=== PATIENT | male | born 1940 | race Caucasian/White ===

== ENCOUNTER 2023-08-01 14:14 | Inpatient (IN) | payer OTHER ==
[~2023-08-01] VITALS: Ht 177.8 cm; Wt 104.6 kg
[2023-08-01 15:26] LABS: Basophils # (auto) 0 10 ^3/uL (0-0.2); Basophils % (auto) 0.2 % (0.0-2.0); Eosinophils # (auto) 0 10 ^3/uL (0-0.8); Lymphocytes % (auto) 7.2 % (10.0-50.0); Mean Corpuscular Volume 93.4 fL (80.0-100.0); Monocytes # (auto) 1.5 10 ^3/uL (0-1.3)
[2023-08-01 15:28] LABS: Hematocrit 38.7 % (41.0-53.0); Hemoglobin 12.9 g/dL (13.5-17.5); Mean Corpuscular Hemoglobin 31.1 pg (28.0-32.0); Mean Corpuscular Hgb Conc. 33.3 g/dL (32.0-36.0); Monocytes % (auto) 10.6 % (0.0-12.0); Neutrophils # (auto) 11.9 10 ^3/uL (1.6-8.6); Red Blood Cells 4.15 10^6/uL (4.5-5.90); Red Cell Distribution Width 12.8 % (11.8-14.3); White Blood Cell 14.5 10^3/uL (4.4-10.8)
[2023-08-01] MEDS ORDERED: ALBUTEROL SULF 2.5 MG/0.5ML(0.5%) NEB SOLN NEB ONE ×3 (16:00→23:00)
[2023-08-01] MEDS ORDERED: levoFLOXacin 500MG 100 ML IV ONE ×2 (16:00→18:43)
[2023-08-01] MEDS ORDERED: FUROSEMIDE 20 MG/2 ML VIAL IV ONE (16:00)
[2023-08-01] MEDS ORDERED: methylPREDNISolone SOD SUCC 125 MG/2 ML VL IV ONE (16:00)
[2023-08-01] MEDS ORDERED: IPRATROPIUM BROM 0.5 MG/2.5ML INH SOL NEB ONE ×2 (16:00→23:00)
[2023-08-01] MEDS ORDERED: IPRATROPIUM BROM 0.5 MG/2.5ML INH SOL ONE ×2 (16:43→23:38)
[2023-08-01] MEDS ORDERED: ALBUTEROL SULF 2.5 MG/0.5ML(0.5%) NEB SOLN ONE ×3 (16:43→23:38)
[2023-08-01 17:15] LABS: Alanine Aminotransferase 57 U/L (7-40); Albumin 3.5 g/dL (3.2-4.8); Alkaline Phosphatase 653 U/L (46-116); Anion Gap 3 (5-15); Aspartate Aminotransferase 126 U/L (13-40); BUN/Creatinine Ratio 19.6 (10.0-20.0); Blood Urea Nitrogen 18 mg/dL (9-23); Carbon Dioxide 36 mmol/L (20-30); Chloride 87 mmol/L (98-107); Glucose 114 mg/dL (74-106); Magnesium 1.5 mg/dL (1.6-2.6); Sodium 126 mmol/L (136-145)
[2023-08-01 17:16] LABS: Bilirubin, Total 1.4 mg/dL (0.2-1.0); Total Protein 6.6 g/dL (5.7-8.2)
[2023-08-01 17:18] LABS: Potassium 5.6 mmol/L (3.5-5.1)
[2023-08-01] MEDS ORDERED: methylPREDNISolone SOD SUCC 125 MG/2 ML VL ONE (18:44)
[2023-08-01 18:54] VITALS: PULSE 95; RESP 22; O2SAT 95
[2023-08-01 19:40] VITALS: PULSE 98; RESP 20; O2SAT 96
[2023-08-01] MEDS ORDERED: MAGNESIUM SULFATE 1GM/100ML 100 ML IV ONE ×2 (20:15→21:10)
[2023-08-01] MEDS ORDERED: DEXTROSE (50%) 50ML SYRG IV ONE (20:45)
[2023-08-01] MEDS ORDERED: SODIUM ZIRCONIUM CYCL 10 GM PAK PO ONE (20:45)
[2023-08-01] MEDS ORDERED: SODIUM CHLORIDE 0.9% 500 ML IV ONE (20:45)
[2023-08-01] MEDS ORDERED: InsuLIN REG 1unit/0.01ml Soln (100units/ml) IV ONE (20:45)
[2023-08-01 21:39] LABS: Chloride 87 mmol/L (98-107); Potassium 5.2 mmol/L (3.5-5.1); Sodium 126 mmol/L (136-145)
[2023-08-01 21:40] LABS: Anion Gap 4 (5-15); Calcium 9.2 mg/dL (8.5-10.1); Carbon Dioxide 35 mmol/L (20-30)
[2023-08-01 21:45] LABS: BUN/Creatinine Ratio 17.6 (10.0-20.0); Blood Urea Nitrogen 16 mg/dL (9-23); Glucose 101 mg/dL (74-106)
[2023-08-01 21:50] LABS: COVID19 ANTIGEN SOFIA FIA NEGATIVE (NEGATIVE)
[2023-08-01 21:51] LABS: Rapid Influenza A Negative (Negative); Rapid Influenza B Negative (Negative)
[2023-08-01] MEDS ORDERED: ACETAMINOPHEN 325 MG TAB PO PRN (22:30)
[2023-08-01] MEDS: SODIUM CHLORIDE 0.9% 1,000 ML IV SCH (22:30)
[2023-08-01] MEDS ORDERED: PROMETHAZINE HCL 25 MG/ML 1ML IV PRN (22:30)
[2023-08-01] MEDS ORDERED: CALCIUM GLUC 1,000mg/50ml-NS 50 ML IV ONE ×2 (22:45→23:00)
[2023-08-01] MEDS ORDERED: DEXTROSE 50% SYRINGE 50 ML IV ONE (22:56)
[2023-08-01] MEDS ORDERED: InsuLIN REG 1unit/0.01ml Soln (100units/ml) ONE (22:57)
[2023-08-01] MEDS ORDERED: SODIUM ZIRCONIUM CYCL 10 GM PAK ONE (22:58)
[2023-08-02] VITALS (9 sets, daily range): BP systolic 123–159; BP diastolic 71–88; PULSE 80–105; RESP 16–20; TEMP 97.8–98.8; O2SAT 92–97
[2023-08-02] MEDS: SODIUM CHLORIDE 0.9% 1,000 ML IV SCH ×2 (00:02→18:15)
[2023-08-02 02:50] LABS: Urine Bacteria NONE SEEN /hpf (None Seen); Urine Blood Negative /uL (Negative); Urine Clarity HAZY (Clear); Urine Color Yellow (Yellow); Urine Hyaline Cast FEW /lpf (0 - 2); Urine Mucus FEW (None Seen); Urine Protein, UAD 1+ (Negative); Urine Specific Gravity 1.017 (1.001-1.035); Urine WBC 4 /hpf (0 - 3)
[2023-08-02] MEDS ORDERED: ATOR10TA52 PO (06:18)
[2023-08-02] MEDS ORDERED: PREG-109 PO (06:18)
[2023-08-02] MEDS ORDERED: LOSA100T58 PO (06:18)
[2023-08-02] MEDS ORDERED: SERT-206 (06:18)
[2023-08-02] MEDS ORDERED: CLON-853 PO (06:18)
[2023-08-02] MEDS ORDERED: HYDR25TA5 PO (06:18)
[2023-08-02] MEDS ORDERED: HYDR-4611 (07:10)
[2023-08-02 08:56] LABS: Basophils # (auto) 0 10 ^3/uL (0-0.2); Eosinophils # (auto) 0 10 ^3/uL (0-0.8); Hematocrit 36.1 % (41.0-53.0); Hemoglobin 11.9 g/dL (13.5-17.5); Lymphocytes # (auto) 0.5 10 ^3/uL (0.4-5.4); Lymphocytes % (auto) 4.7 % (10.0-50.0); Mean Corpuscular Hemoglobin 30.8 pg (28.0-32.0); Mean Corpuscular Hgb Conc. 32.9 g/dL (32.0-36.0); Mean Corpuscular Volume 93.6 fL (80.0-100.0); Monocytes # (auto) 0.6 10 ^3/uL (0-1.3); Monocytes % (auto) 5.2 % (0.0-12.0); Neutrophils # (auto) 9.6 10 ^3/uL (1.6-8.6); Neutrophils % (auto) 90.1 % (37.0-80.0); Nucleated Red Blood Cells % 0.1 %; Red Blood Cells 3.86 10^6/uL (4.5-5.90); Red Cell Distribution Width 13.3 % (11.8-14.3); White Blood Cell 10.7 10^3/uL (4.4-10.8)
[2023-08-02 09:05] LABS: Chloride 90 mmol/L (98-107); Potassium 4.5 mmol/L (3.5-5.1); Sodium 127 mmol/L (136-145)
[2023-08-02 09:06] LABS: Anion Gap 5 (5-15); Calcium 9.2 mg/dL (8.5-10.1); Carbon Dioxide 32 mmol/L (20-30)
[2023-08-02 09:11] LABS: BUN/Creatinine Ratio 22.1 (10.0-20.0); Blood Urea Nitrogen 15 mg/dL (9-23); Glucose 137 mg/dL (74-106)
[2023-08-02] MEDS ORDERED: SODIUM CHLORIDE 0.9% 500 ML IV ONE ×2 (09:45→11:30)
[2023-08-02] MEDS ORDERED: methylPREDNISolone SOD SUCC 40 MG/ML VL ONE ×2 (09:47→21:24)
[2023-08-02] MEDS ORDERED: levoFLOXacin 500MG 100 ML IV SCH (10:00)
[2023-08-02] MEDS: methylPREDNISolone SOD SUCC 40 MG/ML VL IV SCH ×2 (10:00→21:28)
[2023-08-02] MEDS: levoFLOXacin 500MG 100 ML IV SCH (18:15)
[2023-08-02 18:45] LABS: Chloride 91 mmol/L (98-107); Potassium 4.3 mmol/L (3.5-5.1); Sodium 127 mmol/L (136-145)
[2023-08-02 18:46] LABS: Anion Gap 3 (5-15); Calcium 8.5 mg/dL (8.7-10.4); Carbon Dioxide 33 mmol/L (20-30)
[2023-08-02 18:51] LABS: BUN/Creatinine Ratio 25.4 (10.0-20.0); Blood Urea Nitrogen 17 mg/dL (9-23); Glucose 136 mg/dL (74-106)
[2023-08-02] MEDS ORDERED: SERTRALINE HCL 50 MG TAB PO ONE (21:00)
[2023-08-02] MEDS ORDERED: ALBUTEROL SULF 2.5 MG/0.5ML(0.5%) NEB SOLN ONE (21:16)
[2023-08-02] MEDS ORDERED: SERTRALINE HCL 50 MG TAB ONE (21:23)
[2023-08-02] MEDS ORDERED: ACETAMINOPHEN 325 MG TAB PO ONE (21:24)
[2023-08-02] MEDS: ALBUTEROL SULF 2.5 MG/0.5ML(0.5%) NEB SOLN NEB SCH (21:27)
[2023-08-03] VITALS (18 sets, daily range): BP systolic 112–148; BP diastolic 61–76; PULSE 61–116; RESP 16–24; TEMP 97.7–98.6; O2SAT 92–100
[2023-08-03 04:13] LABS: Chloride 91 mmol/L (98-107); Potassium 4.5 mmol/L (3.5-5.1); Sodium 125 mmol/L (136-145)
[2023-08-03 04:14] LABS: Anion Gap 2 (5-15); Calcium 8.6 mg/dL (8.7-10.4); Carbon Dioxide 32 mmol/L (20-30)
[2023-08-03 04:19] LABS: Blood Urea Nitrogen 19 mg/dL (9-23); Glucose 124 mg/dL (74-106)
[2023-08-03 04:58] LABS: Basophils # (auto) 0 10 ^3/uL (0-0.2); Basophils % (auto) 0.1 % (0.0-2.0); Eosinophils # (auto) 0 10 ^3/uL (0-0.8); Hematocrit 34.6 % (41.0-53.0); Hemoglobin 11.4 g/dL (13.5-17.5); Lymphocytes # (auto) 0.5 10 ^3/uL (0.4-5.4); Lymphocytes % (auto) 3.9 % (10.0-50.0); Mean Corpuscular Hemoglobin 30.9 pg (28.0-32.0); Mean Corpuscular Hgb Conc. 32.8 g/dL (32.0-36.0); Monocytes # (auto) 0.7 10 ^3/uL (0-1.3); Monocytes % (auto) 5.1 % (0.0-12.0); Neutrophils # (auto) 12.4 10 ^3/uL (1.6-8.6); Neutrophils % (auto) 90.9 % (37.0-80.0); Nucleated Red Blood Cells % 0.1 %; Red Blood Cells 3.68 10^6/uL (4.5-5.90); Red Cell Distribution Width 13.1 % (11.8-14.3); White Blood Cell 13.6 10^3/uL (4.4-10.8)
[2023-08-03] MEDS ORDERED: ALBUTEROL SULF 2.5 MG/0.5ML(0.5%) NEB SOLN ONE ×5 (05:52→21:42)
[2023-08-03] MEDS: ALBUTEROL SULF 2.5 MG/0.5ML(0.5%) NEB SOLN NEB SCH ×5 (06:52→22:14)
[2023-08-03] MEDS ORDERED: SERTRALINE HCL 50 MG TAB ONE (09:40)
[2023-08-03] MEDS ORDERED: methylPREDNISolone SOD SUCC 40 MG/ML VL ONE ×2 (09:40→20:50)
[2023-08-03] MEDS: SERTRALINE HCL 50 MG TAB PO SCH (09:43)
[2023-08-03] MEDS: SODIUM CHLORIDE 0.9% 1,000 ML IV SCH (09:43)
[2023-08-03] MEDS: methylPREDNISolone SOD SUCC 40 MG/ML VL IV SCH ×2 (09:43→20:54)
[2023-08-03] MEDS ORDERED: clonazePAM 0.5 MG TAB ONE (12:01)
[2023-08-03] MEDS: clonazePAM 0.5 MG TAB PO PRN (12:07)
[2023-08-03] MEDS ORDERED: HYDROcodone-ACET 10/325MG TAB ONE ×2 (12:44→20:48)
[2023-08-03] MEDS: HYDROcodone-ACET 10/325MG TAB PO PRN ×2 (12:44→20:54)
[2023-08-03] MEDS ORDERED: MORPHINE SULFATE INJ 2 MG/ml SYRG ONE (17:07)
[2023-08-03] MEDS ORDERED: levoFLOXacin 500MG 100 ML IV ONE (17:08)
[2023-08-03] MEDS: levoFLOXacin 500MG 100 ML IV SCH (17:33)
[2023-08-04] VITALS (18 sets, daily range): BP systolic 126–152; BP diastolic 61–92; PULSE 54–87; RESP 16–21; TEMP 97.8–98.5; O2SAT 90–100
[2023-08-04 06:27] LABS: Basophils # (auto) 0 10 ^3/uL (0-0.2); Basophils % (auto) 0.1 % (0.0-2.0); Eosinophils # (auto) 0 10 ^3/uL (0-0.8); Hematocrit 34.6 % (41.0-53.0); Hemoglobin 11.1 g/dL (13.5-17.5); Lymphocytes # (auto) 0.8 10 ^3/uL (0.4-5.4); Lymphocytes % (auto) 6.5 % (10.0-50.0); Mean Corpuscular Hemoglobin 30.3 pg (28.0-32.0); Mean Corpuscular Hgb Conc. 32.1 g/dL (32.0-36.0); Mean Corpuscular Volume 94.3 fL (80.0-100.0); Monocytes # (auto) 0.8 10 ^3/uL (0-1.3); Monocytes % (auto) 6.3 % (0.0-12.0); Neutrophils # (auto) 11.1 10 ^3/uL (1.6-8.6); Neutrophils % (auto) 87.1 % (37.0-80.0); Nucleated Red Blood Cells % 0.1 %; Red Blood Cells 3.67 10^6/uL (4.5-5.90); Red Cell Distribution Width 13.1 % (11.8-14.3); White Blood Cell 12.7 10^3/uL (4.4-10.8)
[2023-08-04 06:42] LABS: Anion Gap 2 (5-15); Calcium 8.8 mg/dL (8.7-10.4); Carbon Dioxide 32 mmol/L (20-30); Chloride 92 mmol/L (98-107); Potassium 5.5 mmol/L (3.5-5.1); Sodium 126 mmol/L (136-145)
[2023-08-04 06:48] LABS: BUN/Creatinine Ratio 24.2 (10.0-20.0); Blood Urea Nitrogen 16 mg/dL (9-23); Glucose 108 mg/dL (74-106)
[2023-08-04] MEDS: ALBUTEROL SULF 2.5 MG/0.5ML(0.5%) NEB SOLN NEB SCH ×5 (07:26→22:45)
[2023-08-04 07:57] LABS: Triglycerides 115 mg/dL (< 150)
[2023-08-04 07:58] LABS: LDL Cholesterol 93 mg/dL (< 100)
[2023-08-04 07:59] LABS: Cholesterol 140 mg/dL (< 200); HDL Cholesterol 30 mg/dL (40-59)
[2023-08-04] MEDS: HYDROcodone-ACET 10/325MG TAB PO PRN ×2 (08:49→17:48)
[2023-08-04] MEDS: SERTRALINE HCL 50 MG TAB PO SCH (10:11)
[2023-08-04] MEDS: methylPREDNISolone SOD SUCC 40 MG/ML VL IV SCH ×2 (10:11→21:33)
[2023-08-04] MEDS ORDERED: SODIUM ZIRCONIUM CYCL 10 GM PAK PO ONE (10:30)
[2023-08-04] MEDS ORDERED: DEXTROSE (50%) 50ML SYRG IV ONE ×2 (10:30→14:30)
[2023-08-04] MEDS ORDERED: InsuLIN REG 1unit/0.01ml Soln (100units/ml) IV ONE (10:30)
[2023-08-04] MEDS ORDERED: InsuLIN REG 1unit/0.01ml Soln (100units/ml) SC ONE (13:15)
[2023-08-04] MEDS ORDERED: SODIUM CHLORIDE 1 GM TAB PO ONE (15:00)
[2023-08-04 15:09] LABS: Creatinine, Urine 57.35 mg/dL (30.0-125.0)
[2023-08-04] MEDS: levoFLOXacin 500MG 100 ML IV SCH (17:46)
[2023-08-05] VITALS (8 sets, daily range): BP systolic 131–161; BP diastolic 68–83; PULSE 72–89; RESP 18–21; TEMP 97.9–98; O2SAT 91–100
[2023-08-05] MEDS: HYDROcodone-ACET 10/325MG TAB PO PRN ×3 (00:26→15:56)
[2023-08-05 06:32] LABS: Anion Gap 3 (5-15); Carbon Dioxide 33 mmol/L (20-30); Chloride 92 mmol/L (98-107); Potassium 4.6 mmol/L (3.5-5.1); Sodium 128 mmol/L (136-145)
[2023-08-05 06:33] LABS: Calcium 9.1 mg/dL (8.5-10.1)
[2023-08-05 06:34] LABS: Basophils # (auto) 0 10 ^3/uL (0-0.2); Eosinophils # (auto) 0 10 ^3/uL (0-0.8); Hematocrit 35.7 % (41.0-53.0); Hemoglobin 11.8 g/dL (13.5-17.5); Lymphocytes # (auto) 0.9 10 ^3/uL (0.4-5.4); Lymphocytes % (auto) 6.1 % (10.0-50.0); Mean Corpuscular Hemoglobin 30.5 pg (28.0-32.0); Mean Corpuscular Volume 92.4 fL (80.0-100.0); Monocytes # (auto) 0.9 10 ^3/uL (0-1.3); Monocytes % (auto) 6.1 % (0.0-12.0); Neutrophils # (auto) 13.2 10 ^3/uL (1.6-8.6); Neutrophils % (auto) 87.8 % (37.0-80.0); Red Blood Cells 3.87 10^6/uL (4.5-5.90); Red Cell Distribution Width 12.9 % (11.8-14.3); White Blood Cell 15.1 10^3/uL (4.4-10.8)
[2023-08-05 06:38] LABS: BUN/Creatinine Ratio 26.3 (10.0-20.0); Blood Urea Nitrogen 15 mg/dL (9-23); Glucose 109 mg/dL (74-106)
[2023-08-05] MEDS: ALBUTEROL SULF 2.5 MG/0.5ML(0.5%) NEB SOLN NEB SCH ×3 (06:57→14:15)
[2023-08-05] MEDS: methylPREDNISolone SOD SUCC 40 MG/ML VL IV SCH (09:04)
[2023-08-05] MEDS ORDERED: buPROPion HCL 75 MG TAB PO SCH (10:00)
[2023-08-05] MEDS ORDERED: SODIUM CHLORIDE 1 GM TAB PO SCH (10:00)
[2023-08-05] MEDS: clonazePAM 0.5 MG TAB PO PRN (12:44)
[2023-08-05] MEDS ORDERED: SODC1T PO (14:16)
[2023-08-05] MEDS ORDERED: PRED20TA2 PO (14:16)
[2023-08-05] MEDS ORDERED: BUPR75TA96 PO (14:16)
[2023-08-05] MEDS ORDERED: [UNRECOGNIZED DRUG - CODE] PO (14:16)
[2023-08-05] MEDS ORDERED: LEVO500T91 PO (14:17)
[2023-08-05] MEDS ORDERED: ALBUAER3 IN (14:17)
[2023-08-05] MEDS ORDERED: Ensure HIGH Protein Chocolate 8oz Bottle PO SCH (18:00)
[2023-08-05] MEDS ORDERED: DEMECLOCYCLINE HCL 150 MG TAB PO SCH (22:00)
== END 2023-08-05 17:00 | disposition home health service (06) | DRG 643 ==
LOC: EDUNIT# 14:14 → EDBD 14:14 → ER 14:14 → TELE 22:18 → TELE-CENTR 22:18
PROVIDERS: ADMIT Internal Medicine; ATTEND Internal Medicine
DX: E22.2 Syndrome of inappropriate secretion of antidiuretic hormone (principal); J96.21 Acute and chronic respiratory failure with hypoxia; J44.1 Chronic obstructive pulmonary disease with (acute) exacerbation; F33.1 Major depressive disorder, recurrent, moderate; I10 Essential (primary) hypertension; G89.4 Chronic pain syndrome; E78.5 Hyperlipidemia, unspecified; R79.89 Other specified abnormal findings of blood chemistry; E83.42 Hypomagnesemia; Z20.822 Contact with and (suspected) exposure to COVID-19; E87.5 Hyperkalemia; F41.9 Anxiety disorder, unspecified; Z80.1 Family history of malignant neoplasm of trachea, bronchus and lung; Z88.0 Allergy status to penicillin; Z88.1 Allergy status to other antibiotic agents; Z99.81 Dependence on supplemental oxygen; Z79.899 Other long term (current) drug therapy
CPT/HCPCS: 36415; 71045; 80048; 80053; 80061; 81001; 82570; 82962; 83605; 83735; 83880; 83930; 83935; 84300; 84443; 84484; 85025; 87040; 87077; 87186; 87426; 87804; 94640; 97110; 97116; 97163; 97530; 99291; G0378; J1815; J1956

== ENCOUNTER 2023-10-09 15:40 | Emergency (ER) | payer OTHER ==
[~2023-10-09] VITALS: Ht 172.7 cm; Wt 104.5 kg
[~2023-10-09 15:40] MED LIST: ALBUAER3 IN; ATOR10TA52 PO; BUPR75TA96 PO; CLON-853 PO; HYDR-4611; LEVO500T91 PO; PRED20TA2 PO; PREG-109 PO; SODC1T PO; [UNRECOGNIZED DRUG - CODE] PO
[2023-10-09 16:10] VITALS: PULSE 150; RESP 17; O2SAT 96
[2023-10-09] MEDS: dilTIAZem 25 MG/5 ML VIAL IV ONE (16:28)
[2023-10-09] MEDS ORDERED: dilTIAZem 125mg/125ml BAG KIT 125 ML IV ONE (16:45)
[2023-10-09 17:00] LABS: Basophils # (auto) 0 10 ^3/uL (0-0.2); Basophils % (auto) 0.1 % (0.0-2.0); Eosinophils # (auto) 0 10 ^3/uL (0-0.8); Hematocrit 34.2 % (41.0-53.0); Hemoglobin 11.1 g/dL (13.5-17.5); Lymphocytes # (auto) 0.9 10 ^3/uL (0.4-5.4); Lymphocytes % (auto) 6.7 % (10.0-50.0); Mean Corpuscular Hemoglobin 30.1 pg (28.0-32.0); Mean Corpuscular Hgb Conc. 32.6 g/dL (32.0-36.0); Mean Corpuscular Volume 92.4 fL (80.0-100.0); Monocytes # (auto) 0.9 10 ^3/uL (0-1.3); Monocytes % (auto) 6.6 % (0.0-12.0); Neutrophils % (auto) 86.6 % (37.0-80.0); Red Cell Distribution Width 15.1 % (11.8-14.3); White Blood Cell 13.9 10^3/uL (4.4-10.8)
[2023-10-09 17:17] LABS: Alanine Aminotransferase 30 U/L (7-40); Albumin 2.8 g/dL (3.2-4.8); Alkaline Phosphatase 385 U/L (46-116); Aspartate Aminotransferase 70 U/L (13-40); BUN/Creatinine Ratio 19.4 (10.0-20.0); Bilirubin, Total 4.5 mg/dL (0.2-1.0); Blood Urea Nitrogen 6 mg/dL (9-23); Calcium 8.3 mg/dL (8.7-10.4); Chloride 75 mmol/L (98-107); Glucose 111 mg/dL (74-106); Magnesium 1.4 mg/dL (1.6-2.6); Potassium 3.5 mmol/L (3.5-5.1); Total Protein 5.8 g/dL (5.7-8.2)
[2023-10-09] MEDS: SODIUM CHLORIDE 0.9% 500 ML IV ONE (17:17)
[2023-10-09 17:53] LABS: Anion Gap 3.99999 (5-15); Carbon Dioxide > 40 mmol/L (20-30); Sodium 119 mmol/L (136-145)
[2023-10-09] MEDS ORDERED: METOPROLOL TARTRATE 1MG/1ML-5ML VIAL IV PRN (18:00)
[2023-10-09] MEDS ORDERED: IPRATROPIUM BROM 0.5 MG/2.5ML INH SOL NEB PRN (18:15)
[2023-10-09 18:21] LABS: Base Excess 16.2 mmol/L (-2.0-2.0)
[2023-10-09] MEDS: MAGNESIUM SULFATE 1GM/100ML 100 ML IV SCH (18:38)
[2023-10-09] MEDS: METOPROLOL TARTRATE 25 MG TAB PO SCH (18:39)
[2023-10-09] MEDS: METOPROLOL TARTRATE 1MG/1ML-5ML VIAL IV ONE (18:39)
[2023-10-09] MEDS: SODIUM CHLORIDE 1 GM TAB PO SCH (18:58)
[2023-10-09] MEDS: DEMECLOCYCLINE HCL 150 MG TAB PO ONE (19:06)
[2023-10-09 19:23] VITALS: BP 111/66; PULSE 130; RESP 18; TEMP 97.6; O2SAT 96
[2023-10-09 20:07] VITALS: PULSE 115; RESP 14; O2SAT 95
[2023-10-09] MEDS ORDERED: METOPROLOL TARTRATE 25 MG TAB PO SCH (22:00)
[2023-10-10] MEDS: HYDROcodone-ACET 5/325MG TAB PO PRN (06:29)
[2023-10-10 06:49] VITALS: BP 137/66; PULSE 107; RESP 18; TEMP 97.6; O2SAT 99
== END 2023-10-10 07:08 | disposition short-term general hospital (02) ==
LOC: ER 15:40 → EDBD 15:40 → ER 10-10 07:08
DX: I48.20 Chronic atrial fibrillation, unspecified (principal); E87.1 Hypo-osmolality and hyponatremia; J44.9 Chronic obstructive pulmonary disease, unspecified; E78.5 Hyperlipidemia, unspecified; I10 Essential (primary) hypertension; Z88.0 Allergy status to penicillin; Z88.6 Allergy status to analgesic agent
CPT/HCPCS: 36415; 36600; 71045; 80053; 82805; 83605; 83735; 83880; 84484; 85025; 93005; 96361; 96365; 96366; 96375; 99285; J3475; J7040